=== PATIENT | male | born 1970 | race Two or more races ===

== ENCOUNTER 2016-10-17 16:05 | Emergency (ER) | payer MEDICARE, MEDICAID ==
[~2016-10-17] VITALS: Ht 170.2 cm; Wt 83.0 kg
[2016-10-17 16:44] VITALS: BP 120/72
== END 2016-10-17 16:53 | disposition home or self-care (01) ==
LOC: ER 16:12
DX: K02.9 Dental caries, unspecified (principal)

== ENCOUNTER → 2018-02-20 | Outpatient (CLI) | payer MEDICARE, MEDICAID ==
[2018-02-20 13:36] LABS: Basophils # (auto) 0.1 uL; Basophils % (auto) 1.3 % (0.0-2.0); Lymphocytes # (auto) 1.4 uL; Lymphocytes % (auto) 22.3 % (10.0-50.0); Monocytes # (auto) 0.8 uL; Neutrophils # (auto) 3.9 uL; Neutrophils % (auto) 60.2 % (37.0-80.0)
[2018-02-20 13:38] LABS: Eosinophils # (auto) 0.2 uL; Eosinophils % (auto) 3.9 % (0.0-7.0); Hematocrit 43.6 % (41.0-53.0); Hemoglobin 14.2 g/dL (13.5-17.5); Mean Corpuscular Hemoglobin 26.9 pg (28.0-32.0); Mean Corpuscular Hgb Conc. 32.7 g/dL (32.0-36.0); Mean Corpuscular Volume 82.2 fL (80.0-100.0); Monocytes % (auto) 12.3 % (0.0-12.0); Platelet Count (auto) 351 10^3/uL (140-450); Red Blood Cells 5.31 10^6/uL (4.5-5.90); Red Cell Distribution Width 17.2 % (11.8-14.3); White Blood Cell 6.4 10^3/uL (4.4-10.8)
[2018-02-20 13:41] LABS: Urine Bacteria NONE SEEN /hpf (None Seen); Urine Blood 1+ /uL (Negative); Urine Specific Gravity 1.018 (1.001-1.035); Urine WBC 1 /hpf (0 - 3)
[2018-02-20 14:06] LABS: INR 0.99 (0.9-1.15); Partial Thromboplastin Time 27.3 sec (23.78-33.04); Prothrombin Time 10.6 sec (9.27-12.13)
[2018-02-20 14:08] LABS: Albumin 3.8 g/dL (3.4-5.0); BUN/Creatinine Ratio 12.3; Bilirubin, Total 0.3 mg/dL (0.2-1.0); Calcium 8.5 mg/dL (8.5-10.1); Potassium 3.9 mmol/L (3.5-5.1); Total Protein 6.9 g/dL (6.4-8.2)
== END | disposition home or self-care (01) ==
LOC: LAB 13:21
PROVIDERS: ATTEND Orthopaedic Surgery
DX: M22.42 Chondromalacia patellae, left knee (principal); I10 Essential (primary) hypertension; Z79.01 Long term (current) use of anticoagulants
CPT/HCPCS: 36415; 80053; 81001; 85025; 85610; 85730

== ENCOUNTER 2018-05-29 10:07 | Emergency (ER) | payer MEDICARE, MEDICAID ==
[~2018-05-29] VITALS: Ht 170.2 cm; Wt 78.9 kg
[2018-05-29 12:30] VITALS: BP 144/79
[2018-05-29] MEDS ORDERED: KETOROLAC TROMETH 60MG/2ML VIAL IM ONE (12:45)
== END 2018-05-29 12:55 | disposition home or self-care (01) ==
LOC: ER 10:07
DX: K05.10 Chronic gingivitis, plaque induced (principal); K08.89 Other specified disorders of teeth and supporting structures
CPT/HCPCS: 96372; 99283; J1885

== ENCOUNTER 2021-03-26 08:29 | Inpatient (IN) | payer OTHER ==
[~2021-03-26] VITALS: Ht 200.7 cm; Wt 88.2 kg
[~2021-03-26 08:29] MED LIST: HYDR-4072 PO
[2021-03-26] MEDS ORDERED: MORPHINE SULF(PF) 0.5MG/ML 10ML VIAL ONE (08:36)
[2021-03-26] MEDS ORDERED: LIDOCAINE 2% (LOCAL ANESTH.) PF 5ml SDV ONE (08:37)
[2021-03-26] MEDS ORDERED: MIDAZOLAM HCL 2MG/2ML 2ml VIAL (1mg/ml) ONE ×3 (08:37→10:35)
[2021-03-26] MEDS ORDERED: fentaNYL CITRATE 100 MCG/2 ML VL ONE (08:37)
[2021-03-26] MEDS ORDERED: SODIUM CHLORIDE LOCK 10 ML ONE (08:37)
[2021-03-26] MEDS ORDERED: PROPOFOL 10 MG/ML 20 ML IV ONE ×2 (08:37→11:18)
[2021-03-26] MEDS ORDERED: ceFAZolin 1GM/50ML 100 ML IV ONE (08:43)
[2021-03-26] MEDS ORDERED: ACETAMINOPHEN IV 100 ML IV ONE (08:44)
[2021-03-26] MEDS ORDERED: CELECOXIB 100 MG CAP PO ONE (08:45)
[2021-03-26] MEDS ORDERED: PREGABALIN CAPSULE 75 MG CAP PO ONE (08:45)
[2021-03-26] MEDS ORDERED: ceFAZolin 2 GM in D5W 5% 100 ML IV ONE (08:45)
[2021-03-26] MEDS ORDERED: ACETAMINOPHEN IV 1000 MG/100ML (10MG/ML) IV ONE (08:45)
[2021-03-26] MEDS ORDERED: fentaNYL CITRATE 5 ML ONE (09:10)
[2021-03-26] MEDS ORDERED: BUPIVACAINE/DEXTROSE MPF 0.75% 2 ML AMP IT ONE (09:26)
[2021-03-26] MEDS ORDERED: EPINEPHrine HCL 1 MG/1 ML AMP ONE (09:26)
[2021-03-26] MEDS ORDERED: KETOROLAC TROMETH 30 MG/ML 1ML VIAL ONE (10:03)
[2021-03-26] MEDS ORDERED: VANCOMYCIN HCL 1000 MG VL ONE (10:03)
[2021-03-26] MEDS ORDERED: BUPIVACAINE W/ EPINEPH 0.25% INJ 50ML MDV ONE (10:04)
[2021-03-26] MEDS ORDERED: TRANEXAMIC ACID 20 ML ONE (10:04)
[2021-03-26] MEDS ORDERED: TETRACAINE 1% INJ 2 ML VIAL IJ ONE (10:14)
[2021-03-26] MEDS ORDERED: ACETAMINOPHEN 325 MG TAB PO PRN (12:30)
[2021-03-26] MEDS ORDERED: ONDANSETRON HCL 4 MG/2 ML VIAL IV PRN (12:30)
[2021-03-26] MEDS ORDERED: MORPHINE SULF INJ 2 MG/ML SYRINGE 1ML IV PRN (12:30)
[2021-03-26] MEDS ORDERED: NITROGLYCERIN 0.4 MG SL TAB SL PRN (12:30)
[2021-03-26] MEDS: LACTATED RINGER'S 1,000 ML IV SCH ×2 (13:00→22:30)
[2021-03-26] MEDS: ceFAZolin 1GM/50ML 50 ML IV SCH ×2 (13:00→18:30)
[2021-03-26] MEDS: KETOROLAC TROMETH 30 MG/ML 1ML VIAL IV SCH ×2 (13:15→21:34)
[2021-03-26 14:00] VITALS: BP 133/54
[2021-03-26 15:00] VITALS: BP 127/74
[2021-03-26] MEDS: HYDROmorphone HCL 2 MG/ML VL IV PRN (15:56)
[2021-03-26 16:00] VITALS: BP 116/85
[2021-03-26 17:00] VITALS: BP 123/70
[2021-03-26] MEDS: OXYCODONE W/ ACETAMINOPHEN 5/325MG TABLET PO PRN (17:15)
[2021-03-26 18:00] VITALS: BP 142/97
[2021-03-26] MEDS: traMADol HCL 50 MG TAB PO PRN (19:48)
[2021-03-26] MEDS: DOCUSATE SOD 100 MG CAP PO SCH (21:45)
[2021-03-26 22:00] VITALS: BP_SYST 121; BP_SYST 137; BP_DIAS 83
[2021-03-26] MEDS ORDERED: oxyCODONE ER 10 MG TAB PO SCH (22:00)
[2021-03-27] VITALS (10 sets, daily range): BP systolic 103–171; BP diastolic 68–101
[2021-03-27] MEDS: HYDROmorphone HCL 2 MG/ML VL IV PRN ×7 (00:22→22:47)
[2021-03-27] MEDS: ceFAZolin 1GM/50ML 50 ML IV SCH (00:24)
[2021-03-27] MEDS: OXYCODONE W/ ACETAMINOPHEN 5/325MG TABLET PO PRN ×4 (03:14→20:04)
[2021-03-27] MEDS: traMADol HCL 50 MG TAB PO PRN ×2 (04:26→20:05)
[2021-03-27] MEDS ORDERED: SILD100T57 PO (04:51)
[2021-03-27] MEDS: KETOROLAC TROMETH 30 MG/ML 1ML VIAL IV SCH (05:54)
[2021-03-27 06:50] LABS: Albumin 3.1 g/dL (3.4-5.0); Calcium 8.1 mg/dL (8.5-10.1); Potassium 4.7 mmol/L (3.5-5.1)
[2021-03-27 06:52] LABS: BUN/Creatinine Ratio 13.8
[2021-03-27 06:58] LABS: Bilirubin, Total 0.7 mg/dL (0.2-1.0); Total Protein 6.2 g/dL (6.4-8.2)
[2021-03-27] MEDS: LACTATED RINGER'S 1,000 ML IV SCH (07:40)
[2021-03-27] MEDS: SOD CHL 0.45% 1,000 ML IV SCH ×2 (07:45→21:05)
[2021-03-27 09:43] LABS: Hematocrit 44.8 % (41.0-53.0); Hemoglobin 14.7 g/dL (13.5-17.5)
[2021-03-27] MEDS: oxyCODONE ER 20 MG TAB PO SCH ×2 (10:00→21:58)
[2021-03-27] MEDS ORDERED: ENOXAPARIN SOD 40 MG/0.4 ML SYRINGE SC SCH (10:00)
[2021-03-27] MEDS: ASPirin-EC 81 mg tab PO SCH ×2 (10:00→21:57)
[2021-03-27] MEDS: DOCUSATE SOD 100 MG CAP PO SCH ×2 (10:00→21:57)
[2021-03-27] MEDS: PANTOPRAZOLE 40 MG TAB PO SCH (10:00)
[2021-03-27 16:43] LABS: BUN/Creatinine Ratio 15.4; Potassium 4.3 mmol/L (3.5-5.1)
[2021-03-27] MEDS: diazePAM 2 MG TAB PO PRN (17:37)
[2021-03-28] MEDS: HYDROmorphone HCL 2 MG/ML VL IV PRN ×6 (02:34→21:53)
[2021-03-28] MEDS: traMADol HCL 50 MG TAB PO PRN (03:35)
[2021-03-28] MEDS: OXYCODONE W/ ACETAMINOPHEN 5/325MG TABLET PO PRN ×2 (03:36→08:01)
[2021-03-28 05:00] VITALS: BP 159/92
[2021-03-28] MEDS: diazePAM 2 MG TAB PO PRN ×2 (06:47→20:50)
[2021-03-28 07:26] LABS: Hematocrit 42.2 % (41.0-53.0); Hemoglobin 14.2 g/dL (13.5-17.5)
[2021-03-28 08:30] VITALS: BP 148/99
[2021-03-28] MEDS: ASPirin-EC 81 mg tab PO SCH ×2 (08:58→20:50)
[2021-03-28] MEDS: PANTOPRAZOLE 40 MG TAB PO SCH (08:58)
[2021-03-28] MEDS: oxyCODONE ER 20 MG TAB PO SCH ×2 (08:58→21:52)
[2021-03-28] MEDS: DOCUSATE SOD 100 MG CAP PO SCH ×2 (08:58→20:50)
[2021-03-28] MEDS ORDERED: oxyCODONE HCL 5MG TAB PO PRN (09:00)
[2021-03-28] MEDS: SOD CHL 0.45% 1,000 ML IV SCH ×2 (10:25→20:51)
[2021-03-28] MEDS: KETOROLAC TROMETH 30 MG/ML 1ML VIAL IV PRN ×2 (10:26→20:51)
[2021-03-28 12:30] VITALS: BP 155/89
[2021-03-28] MEDS: oxyCODONE HCL 5MG TAB PO PRN ×2 (13:38→17:32)
[2021-03-28 17:00] VITALS: BP 147/101
[2021-03-28 20:00] VITALS: BP 172/97
[2021-03-28 22:00] VITALS: BP 172/97
[2021-03-29] MEDS: oxyCODONE HCL 5MG TAB PO PRN ×4 (01:11→17:28)
[2021-03-29] MEDS: HYDROmorphone HCL 2 MG/ML VL IV PRN ×6 (01:11→21:03)
[2021-03-29 05:30] VITALS: BP 120/67
[2021-03-29 05:52] LABS: Hematocrit 37.7 % (41.0-53.0); Hemoglobin 12.7 g/dL (13.5-17.5)
[2021-03-29 08:30] VITALS: BP 147/89
[2021-03-29] MEDS: oxyCODONE ER 20 MG TAB PO SCH ×2 (09:10→21:02)
[2021-03-29] MEDS: PANTOPRAZOLE 40 MG TAB PO SCH (09:11)
[2021-03-29] MEDS: ASPirin-EC 81 mg tab PO SCH ×2 (09:11→21:02)
[2021-03-29] MEDS: DOCUSATE SOD 100 MG CAP PO SCH ×2 (09:11→21:02)
[2021-03-29] MEDS: KETOROLAC TROMETH 30 MG/ML 1ML VIAL IV PRN ×3 (12:26→21:50)
[2021-03-29] MEDS: SOD CHL 0.45% 1,000 ML IV SCH ×2 (12:26→13:39)
[2021-03-29 12:30] VITALS: BP 126/85
[2021-03-29 17:00] VITALS: BP 135/91
[2021-03-29] MEDS: diazePAM 2 MG TAB PO PRN (21:03)
[2021-03-29 22:00] VITALS: BP 124/79
[2021-03-30] MEDS: oxyCODONE HCL 5MG TAB PO PRN ×2 (00:34→05:31)
[2021-03-30] MEDS: HYDROmorphone HCL 2 MG/ML VL IV PRN ×2 (00:34→05:32)
[2021-03-30] MEDS: KETOROLAC TROMETH 30 MG/ML 1ML VIAL IV PRN (04:07)
[2021-03-30 05:00] VITALS: BP 126/68
[2021-03-30 09:00] VITALS: BP 133/82
== END 2021-03-30 10:30 | disposition home health service (06) | DRG 470 ==
LOC: SUR 08:29 → TELE 12:23 → TELE-CENTR 14:46 → CENTRAL 03-27 10:20
PROVIDERS: ADMIT Orthopaedic Surgery; ATTEND Orthopaedic Surgery
PROC: 8E0YXBG Computer Assisted Procedure of Lower Extremity, With Computerized Tomography (ICD-10-PCS; 2021-03-26)
PROC: 3E0T3BZ Introduction of Anesthetic Agent into Peripheral Nerves and Plexi, Percutaneous Approach (ICD-10-PCS; 2021-03-26)
PROC: 0SRD069 Replacement of Left Knee Joint with Oxidized Zirconium on Polyethylene Synthetic Substitute, Cemented, Open Approach (ICD-10-PCS; principal; 2021-03-26 10:29)
DX: M17.12 Unilateral primary osteoarthritis, left knee (principal); Z20.822 Contact with and (suspected) exposure to COVID-19; Z88.5 Allergy status to narcotic agent; Z88.8 Allergy status to other drugs, medicaments and biological substances
CPT/HCPCS: 36415; 73562; 80048; 80053; 85014; 85018; 86850; 86900; 86901; 97110; 97116; 97163; 97530; C1713; G0378; J0131; J0171; J0690; J1885; J2001; J2250; J2704; J7060

== ENCOUNTER 2021-05-12 04:28 | Inpatient (IN) | payer MEDICAID, OTHER ==
[~2021-05-12] VITALS: Ht 170.2 cm; Wt 78.9 kg
[~2021-05-12 04:28] MED LIST changes: +SILD100T57 PO
[2021-05-12 05:11] LABS: Basophils # (auto) 0.1 10 ^3/uL (0-0.2); Basophils % (auto) 1.3 % (0.0-2.0); Eosinophils # (auto) 0.2 10 ^3/uL (0-0.8); Eosinophils % (auto) 3.5 % (0.0-7.0); Hematocrit 43.4 % (41.0-53.0); Hemoglobin 14.2 g/dL (13.5-17.5); Lymphocytes # (auto) 1.5 10 ^3/uL (0.4-5.4); Lymphocytes % (auto) 26.5 % (10.0-50.0); Mean Corpuscular Hemoglobin 27.1 pg (28.0-32.0); Mean Corpuscular Hgb Conc. 32.7 g/dL (32.0-36.0); Mean Corpuscular Volume 82.9 fL (80.0-100.0); Monocytes # (auto) 0.6 10 ^3/uL (0-1.3); Monocytes % (auto) 10.2 % (0.0-12.0); Neutrophils # (auto) 3.4 10 ^3/uL (1.6-8.6); Neutrophils % (auto) 58.5 % (37.0-80.0); Nucleated Red Blood Cells % 0.1 %; Red Blood Cells 5.24 10^6/uL (4.5-5.90); Red Cell Distribution Width 14.5 % (11.8-14.3); White Blood Cell 5.8 10^3/uL (4.4-10.8)
[2021-05-12 05:26] LABS: INR 1.05 (0.9-1.15)
[2021-05-12 05:49] LABS: Albumin 3.7 g/dL (3.4-5.0); Calcium 9.9 mg/dL (8.5-10.1); Potassium 4.3 mmol/L (3.5-5.1)
[2021-05-12 05:56] LABS: BUN/Creatinine Ratio 24.3; Bilirubin, Total 0.2 mg/dL (0.2-1.0); Total Protein 7.7 g/dL (6.4-8.2)
[2021-05-12 06:24] LABS: Alcohol, Urine < 3.0 mg/dL (0-10); Cannabinoid Screen, Urine POSITIVE (NEGATIVE); Opiate Scree,Urine POSITIVE (NEGATIVE)
[2021-05-12 06:31] LABS: Amphetamine Screen, Urine NEGATIVE (NEGATIVE); Barbiturate Scree,Urine NEGATIVE (NEGATIVE); Benzodiazephine Screen, Urine NEGATIVE (NEGATIVE); Cocaine Screen, Urine NEGATIVE (NEGATIVE); Phencyclidine Screen, Urine NEGATIVE (NEGATIVE)
[2021-05-12] MEDS ORDERED: SODIUM CHLORIDE 0.9% 1,000 ML IV ONE (07:00)
[2021-05-12] MEDS ORDERED: cefTRIAXone 1GM/50ML D5W 50 ML IV ONE (07:00)
[2021-05-12] MEDS ORDERED: SODIUM CHLORIDE 0.9% 500 ML IV ONE (07:00)
[2021-05-12] MEDS ORDERED: MORPHINE SULFATE INJECTION 2 MG/ML SYRG IV ONE (08:00)
[2021-05-12] MEDS ORDERED: VANCOMYCIN HCL 1000 MG VL ONE (08:06)
[2021-05-12] MEDS ORDERED: ceFAZolin 1GM/50ML 100 ML IV ONE (08:09)
[2021-05-12] MEDS ORDERED: fentaNYL CITRATE 100 MCG/2 ML VL ONE (08:24)
[2021-05-12] MEDS ORDERED: MIDAZOLAM HCL 2MG/2ML 2ml VIAL (1mg/ml) ONE (08:24)
[2021-05-12] MEDS ORDERED: MEPERIDINE HCL (25 MG/ML) 1ML VIAL ONE (08:24)
[2021-05-12] MEDS ORDERED: ONDANSETRON HCL 4 MG/2 ML VIAL IV PRN ×2 (08:45→10:00)
[2021-05-12] MEDS ORDERED: ePHEDrine SULFATE 50 MG/ML AMP IV PRN (08:45)
[2021-05-12] MEDS ORDERED: MORPHINE SULFATE 4 MG/ML SYR/VIAL IV PRN (08:45)
[2021-05-12] MEDS ORDERED: LABETALOL HCL 5 MG/ML 4ML SYRINGE IV PRN (08:45)
[2021-05-12] MEDS ORDERED: MIDAZOLAM HCL 2MG/2ML 2ml VIAL (1mg/ml) IV PRN (08:45)
[2021-05-12] MEDS ORDERED: DexAMETHasone SOD PHOS 10MG/1ML VIAL INJ ONE (08:58)
[2021-05-12] MEDS ORDERED: PROPOFOL 10 MG/ML 20 ML IV ONE (08:58)
[2021-05-12] MEDS: DOCUSATE SOD 100 MG CAP PO SCH ×2 (10:00→21:36)
[2021-05-12] MEDS ORDERED: MORPHINE SULFATE INJECTION 2 MG/ML SYRG IV PRN (10:00)
[2021-05-12] MEDS ORDERED: OXYCODONE W/ ACETAMINOPHEN 5/325MG TABLET PO PRN (10:00)
[2021-05-12] MEDS ORDERED: VANCOMYCIN PER PHARMACY 0 MG IV SCH (10:00)
[2021-05-12] MEDS: oxyCODONE ER 10 MG TAB PO SCH ×2 (10:00→21:36)
[2021-05-12] MEDS: LACTATED RINGER'S 1,000 ML IV SCH ×2 (10:00→16:03)
[2021-05-12] MEDS ORDERED: NITROGLYCERIN 0.4 MG SL TAB SL PRN (10:00)
[2021-05-12] MEDS ORDERED: rifAMPin 300 MG CAP PO SCH (10:00)
[2021-05-12] MEDS: HYDROmorphone HCL 2 MG/ML VL IV PRN ×6 (10:06→23:10)
[2021-05-12] MEDS ORDERED: VANCOMYCIN 1GM/250ML 250 ML IV ONE (11:00)
[2021-05-12] MEDS: OXYCODONE W/ ACETAMINOPHEN 5/325MG TABLET PO PRN ×3 (11:48→20:31)
[2021-05-12] MEDS: SODIUM CHLOR 0.9% PF (SALINE LOCK) 10ML VIAL/SYR IV SCH ×2 (14:00→21:34)
[2021-05-12 15:00] VITALS: BP 120/70
[2021-05-12] MEDS ORDERED: CEPH500T PO (16:47)
[2021-05-12 17:00] VITALS: BP 140/111
[2021-05-12 22:00] VITALS: BP 158/98
[2021-05-12] MEDS: VANCOMYCIN 1GM/250ML 250 ML IV SCH (23:54)
[2021-05-13] MEDS: OXYCODONE W/ ACETAMINOPHEN 5/325MG TABLET PO PRN ×4 (00:55→20:13)
[2021-05-13] MEDS: HYDROmorphone HCL 2 MG/ML VL IV PRN ×3 (03:56→17:27)
[2021-05-13 05:00] VITALS: BP 119/70
[2021-05-13] MEDS: SODIUM CHLOR 0.9% PF (SALINE LOCK) 10ML VIAL/SYR IV SCH ×3 (06:09→21:30)
[2021-05-13] MEDS: LACTATED RINGER'S 1,000 ML IV SCH ×2 (06:09→16:19)
[2021-05-13] MEDS: DOCUSATE SOD 100 MG CAP PO SCH ×2 (11:10→21:30)
[2021-05-13] MEDS: oxyCODONE ER 10 MG TAB PO SCH ×2 (11:11→21:31)
[2021-05-13] MEDS: ENOXAPARIN SOD 40 MG/0.4 ML SYRINGE SC SCH (11:12)
[2021-05-13 12:55] VITALS: BP 150/77
[2021-05-13] MEDS: VANCOMYCIN 1GM/250ML 250 ML IV SCH ×2 (14:04→23:58)
[2021-05-13] MEDS: PIPERACILLIN-TAZOB 3.375GM 100 ML IV SCH ×2 (16:19→21:30)
[2021-05-13 17:39] VITALS: BP 160/89
[2021-05-13 22:00] VITALS: BP 130/95
[2021-05-14] MEDS: HYDROmorphone HCL 2 MG/ML VL IV PRN ×3 (00:01→12:09)
[2021-05-14] MEDS: LACTATED RINGER'S 1,000 ML IV SCH ×2 (02:11→11:57)
[2021-05-14] MEDS: OXYCODONE W/ ACETAMINOPHEN 5/325MG TABLET PO PRN (03:19)
[2021-05-14 05:00] VITALS: BP 123/52
[2021-05-14] MEDS: PIPERACILLIN-TAZOB 3.375GM 100 ML IV SCH ×2 (05:11→14:00)
[2021-05-14] MEDS: SODIUM CHLOR 0.9% PF (SALINE LOCK) 10ML VIAL/SYR IV SCH ×2 (05:11→14:00)
[2021-05-14 09:00] VITALS: BP 118/80
[2021-05-14] MEDS: DOCUSATE SOD 100 MG CAP PO SCH (09:33)
[2021-05-14] MEDS: ENOXAPARIN SOD 40 MG/0.4 ML SYRINGE SC SCH (09:34)
[2021-05-14] MEDS: oxyCODONE ER 10 MG TAB PO SCH (09:34)
[2021-05-14] MEDS: VANCOMYCIN 1GM/250ML 250 ML IV SCH (12:09)
[2021-05-14 13:11] VITALS: BP 103/73
== END 2021-05-14 14:10 | disposition home or self-care (01) | DRG 325 ==
LOC: ER 04:28 → OVERFLOW 09:52 → WEST WING 15:28
PROVIDERS: ADMIT Orthopaedic Surgery Adult Reconstructive Orthopaedic Surgery; ATTEND Orthopaedic Surgery Adult Reconstructive Orthopaedic Surgery
PROC: 0SBD0ZZ Excision of Left Knee Joint, Open Approach (ICD-10-PCS; principal; 2021-05-13)
PROC: 0SPD09Z Removal of Liner from Left Knee Joint, Open Approach (ICD-10-PCS; 2021-05-13)
PROC: 0SUW09Z Supplement Left Knee Joint, Tibial Surface with Liner, Open Approach (ICD-10-PCS; 2021-05-13)
DX: M24.662 Ankylosis, left knee (principal); T81.31XA Disruption of external operation (surgical) wound, not elsewhere classified, initial encounter; S80.212A Abrasion, left knee, initial encounter; Z20.822 Contact with and (suspected) exposure to COVID-19; Y83.8 Other surgical procedures as the cause of abnormal reaction of the patient, or of later complication, without mention of misadventure at the time of the procedure; Y92.89 Other specified places as the place of occurrence of the external cause; Z96.652 Presence of left artificial knee joint
CPT/HCPCS: 36415; 71045; 80053; 80202; 80307; 82565; 85025; 85610; 87070; 87075; 87077; 87186; 87205; 87426; 93005; 96365; 96375; G0378; J0690; J1100; J2250; J2405; J2543; J2704